=== PATIENT | female | born 1945 | race Caucasian/White ===

== ENCOUNTER 2016-09-05 06:18 | Observation (INO) | payer OTHER ==
[2016-08-23 08:26] VITALS: BMI 36.0
--- NOTE | 2016-08-23 09:01 | PAT Medication Instructions ---
Service Date Aug 23, 2016. Current Home Medication List Aspirin (Aspirin Ec), 81 MG PO QPM Budesonide (Budesonide), 3 TAB PO QAM Cholecalciferol (Vitamin D3), Unknown Dose PO QAM Dicyclomine Hcl (Dicyclomine Hcl), 1 TAB PO BID PRN for PRN Fexofenadine Hcl (Mariah Allergy), 1 TAB PO QAM Levothyroxine Sodium (Levothyroxine Sodium), 1 TAB PO QAM Lisinopril (Zestril), 10 MG PO QAM Meclizine Hcl (Meclizine Hcl), 1 TAB PO TID PRN for VERTIGO Metoprolol Succinate (Toprol Xl), 25 MG PO QPM Multivitamin (Multivitamin), 1 TAB PO QAM Omeprazole (Prilosec), 20 MG PO BID Rosuvastatin Calcium (Crestor), 10 MG PO QPM Sertraline (Zoloft), 100 MG PO BID Triamterene/Hctz (Dyazide 37.5MG/25MG), 1 TAB PO QAM [Foximax ], Unknown Dose PO QWEEK Medication Instructions For Your Scheduled Surgery - Check with surgeon for instructions: Aspirin (Aspirin Ec), 81 MG PO QPM - Continue as directed: [Foximax ], Unknown Dose PO QWEEK - Hold the following medications the morning of surgery: Cholecalciferol (Vitamin D3), Unknown Dose PO QAM Lisinopril (Zestril), 10 MG PO QAM Triamterene/Hctz (Dyazide 37.5MG/25MG), 1 TAB PO QAM Dicyclomine Hcl (Dicyclomine Hcl), 1 TAB PO BID PRN Fexofenadine Hcl (Mariah Allergy), 1 TAB PO QAM Multivitamin (Multivitamin), 1 TAB PO QAM - Take the following medications the morning of surgery with a sip of water OTHERWISE NOTHING TO EAT OR DRINK AFTER MIDNIGHT: Budesonide (Budesonide), 3 TAB PO QAM Levothyroxine Sodium (Levothyroxine Sodium), 1 TAB PO QAM Meclizine Hcl (Meclizine Hcl), 1 TAB PO TID PRN for VERTIGO Omeprazole (Prilosec), 20 MG PO BID Sertraline (Zoloft), 100 MG PO BID - Take the following medications as scheduled the night before surgery: Dicyclomine Hcl (Dicyclomine Hcl), 1 TAB PO BID PRN Meclizine Hcl (Meclizine Hcl), 1 TAB PO TID PRN for VERTIGO Rosuvastatin Calcium (Crestor), 10 MG PO QPM Metoprolol Succinate (Toprol Xl), 25 MG PO QPM Omeprazole (Prilosec), 20 MG PO BID Sertraline (Zoloft), 100 MG PO BID If you have any questions please call us at [phone] (Anne Mclaughlin PA-C ) or [phone] or [phone]
[2016-08-23 09:44] LABS: BASO % 0.2 %; BASO ABS # 0.02 K/uL (0-0.2); COMPLETE YES; EOS % 0.8 %; HEMATOCRIT 38.8 % (37-47); IG% 0.5 %; LYMPH ABS # 1.07 K/uL (1.2-3.4); MEAN CELL VOLUME 92.2 fL (80-100); MEAN CORPUSCULAR HEMOGLOBIN 30.9 pg (25-34); MEAN CORPUSCULAR HGB CONC 33.5 g/dl (32-36); MEAN PLATELET VOLUME 9.6 fL (7.4-10.4); MONO % 6.9 %; NEUT % 78.6 %; PLATELET COUNT 231 K/uL (130-400); RED BLOOD COUNT 4.21 M/uL (4.2-5.4); WHITE BLOOD COUNT 8.24 K/uL (4.8-10.8)
[2016-08-23 09:51] LABS: URINE APPEARANCE CLEAR (CLEAR); URINE BILIRUBIN NEG (NEG); URINE COLOR YELLOW; URINE NITRITE NEG (NEG); URINE PH 6.5 (4.5-7.5); URINE SPECIFIC GRAVITY 1.015 (1.000-1.030); UROBILINOGEN NEG (NEG)
[2016-08-23 09:54] LABS: MANUAL MICROSCOPIC REQUIRED? NO; REVIEW REQ? NO
[2016-08-23 09:54] LABS: PARTIAL THROMBOPLASTIN RATIO 0.9; PROTHROMBIN TIME (PATIENT) 10.2 SECONDS (9.0-12.0)
--- NOTE | 2016-08-23 09:55 | DIAGNOSTIC IMAGING REPORT ---
CHEST PREADMISSION(PA/LAT) CLINICAL HISTORY: Preoperative evaluation COMPARISON STUDY: No previous studies for comparison. FINDINGS: Lung volumes are normal. There is no pneumothorax or pleural effusion. Linear left lung opacities are suggestive of atelectasis. There is no consolidation. Pulmonary vascularity is normal. Degenerative changes of both shoulders are noted as well as suspected distal right clavicular resection or resorption. IMPRESSION: No acute cardiopulmonary findings. Electronically signed by: Alexy Tran M.D. 08/23/2016 9:54 AM
[2016-08-23 10:42] LABS: BUN/CREATININE RATIO 22.7 (10-20); CALCIUM 9.2 mg/dl (8.5-10.1); CREATININE 0.95 mg/dl (0.60-1.20); POTASSIUM 4.3 mmol/L (3.5-5.1)
--- NOTE | 2016-09-04 12:27 | HISTORY & PHYSICAL EXAMINATION ---
DATE OF ADMISSION: 09/05/2016 For surgery at [facility] tomorrow, the 05 of September. She is being preop'd for lumbar stenosis surgery L3-L4 and L4-L5, lumbar spine. She has a combination of classic spinal stenosis with some facet joint hypertrophy, fatty deposits giving a significant cauda equina compression. MEDICATIONS: Include meclizine, multivitamin, Prevacid, sertraline, levothyroxine, ranitidine, Toprol, Norvasc, lisinopril, Crestor, metoprolol. PAST SURGICAL HISTORY: Hysterectomy, appendectomy, rotator cuff surgery left and right. She also had brain aneurysm surgery in 2010. ALLERGIES: INCLUDE AMOXICILLIN AND AUGMENTIN. SOCIAL HISTORY: Nonsmoker, non-ETOH user. PAST MEDICAL HISTORY: Positive for acid reflux. No carcinoma. No kidney, renal or liver pathology. Positive for hypertension. No COPD, no diabetes mellitus. REVIEW OF SYSTEMS: Denies blurred vision, double vision, vertigo, loss of balance. Denies any current chest pain, palpitations, shortness of breath. Denies nausea, vomiting, urgency, frequency, dysuria. Admits to back, lower extremity difficulty, paresthesias, walking intolerance and significant lower extremity pain, roughly in the 4 and 5 nerve root distribution. OBJECTIVE: GENERAL: She is alert, oriented young lady, conversant. No signs of depression. VITAL SIGNS: Blood pressure 130/80, pulse of 80, respiratory rate 16, temperature 97.4. HEART AND LUNGS: Normal. Normal S1, S2; no ectopy. Lungs clear to auscultation. No rales, rhonchi or wheezing. ABDOMEN: Soft, nontender, bowel sounds present. EXTREMITIES: Demonstrate some weakness with dorsiflexion and plantarflexion, some muscle atrophy and pain with straight leg raising. She also has pain with flexion, extension and percussion to the spine. Images demonstrate stenosis L3-L4, L4-L5, and L5-S1. DISPOSITION: Includes surgery which will be a laminectomy L3-L4, L4-L5, L5-S1 lumbar spine.
[2016-09-05] VITALS (9 sets, daily range): BP systolic 105–142; BP diastolic 47–76; PULSE 56–75; TEMP 36.6–37.5; O2SAT 91–95; Ht 157.5 cm; Wt 91.0 kg
[~2016-09-05] VITALS: Ht 157.5 cm; Wt 91.0 kg
[~2016-09-05 06:18] MED LIST: ALEN70TA4 PO; ASPI81TA28 PO; BUDE0.09 PO; CHOL1000 PO; CLINDAMYCIN 600 MG/54 ML D5W IV SCH; CRS/10 PO; DICY20TA10 PO; FEXO1TAB49 PO; LACTATED RINGER'S 1000ML 1,000 ML IV SCH; LEVO75TA5 PO; LISI-461 PO; MECL1TAB42 PO; METO25TA3 PO; MULT-506 PO; PRLSR20 PO; SERT-234 PO; SODIUM CHLORIDE 0.9% 1000ML 1,000 ML IV SCH; TRIA37.5 PO
[2016-09-05] MEDS ORDERED: FENTANYL CITRATE INJ 50 MCG/1 ML 2 ML VIAL ONE (07:40)
[2016-09-05] MEDS ORDERED: MIDAZOLAM HCL 1 MG/ML 2ML VIAL ONE (07:40)
--- NOTE | 2016-09-05 07:49 | History & Physical Bridge Note ---
H&P Re-Evaluation Bridge Note: I have examined the patient, reviewed the History & Physical and in the interval since the performance of the History & Physical I have noted the following changes of clinical significance: No changes noted
[2016-09-05] MEDS ORDERED: GLYCOPYRROLATE INJ 0.2 MG/ML VIAL ONE ×2 (08:47→08:54)
[2016-09-05] MEDS ORDERED: LIDOCAINE HCL 2% 2 ML VIAL (20MG/ML) ONE (08:47)
[2016-09-05] MEDS ORDERED: NEOSTIGMINE METHYLSULFATE 5 MG/5 ML SYR ONE (08:47)
[2016-09-05] MEDS ORDERED: LARYING-O-JET KIT (LTA) EXT ONE ×2 (08:47)
[2016-09-05] MEDS ORDERED: PROPOFOL IV EMULSION 10 MG/ML 20 ML VIAL IV ONE (08:47)
[2016-09-05] MEDS ORDERED: CISATRACURIUM BESYLATE IV SOLN 2 MG/ML 10 ML VIAL ONE (08:47)
[2016-09-05] MEDS ORDERED: DEXAMETHASONE SOD INJ 4 MG/ML VIAL ONE (08:47)
[2016-09-05] MEDS ORDERED: ONDANSETRON INJ 2 MG/ML 2 ML VIAL ONE (08:47)
[2016-09-05] MEDS ORDERED: HYDROmorphone INJ 2 MG/ML SYR/VIAL ONE (08:48)
[2016-09-05] MEDS ORDERED: GELATIN SPONGE SZ 100 TOP ONE (09:49)
[2016-09-05] MEDS ORDERED: THROMBIN FOR SOLN 20000 UNIT KIT TOP ONE (09:49)
[2016-09-05] MEDS ORDERED: VANCOMYCIN HCL 1000MG/20ML VIAL TOP ONE (09:49)
[2016-09-05] MEDS ORDERED: BUPIVACAINE/EPINEPHRINE 0.5% MPF 1:200,000 30 ML VIAL INJ ONE (09:49)
[2016-09-05] MEDS ORDERED: BACITRACIN 50000 UNIT VIAL IR ONE (09:49)
--- NOTE | 2016-09-05 10:21 | DIAGNOSTIC IMAGING REPORT ---
LUMBAR SPINE, INTRAOPERATIVE FLUOROSCOPY HISTORY: L3-S1 laminectomy. FLUOROSCOPY TIME: 1.5 seconds. FINDINGS: Intraoperative fluoroscopy was provided for the lumbar spine. A single fluoroscopic spot image of the lumbar spine was submitted. There are surgical instruments posterior to the L3 vertebral body and the S1 level. IMPRESSION: Fluoroscopy provided for a L3-S1 laminectomy. Electronically signed by: Juan F Mcnulty M.D. 09/05/2016 10:19 AM
--- NOTE | 2016-09-05 10:29 | [facility] Post Operative Brief Note ---
Immediate Operative Summary Operative Date Sep 05, 2016. Pre-Operative Diagnosis Spinal stenosis L3-L4, L4-L5, and L5-S1 Post-Operative Diagnosis Spinal stenosis L3-L4, L4-L5, and L5-S1 Procedure(s) Performed L3-S1 Laminectomy Surgeon Dr. Josué Camarillo Drop Crew Laborer Surgeon(s) Filippo Honeycutt Estimated Blood Loss 200ml Findings stenosis and epidural lipomatosis Specimens No Specimen Complication(s) None Disposition Recovery Room / PACU
[2016-09-05] MEDS ORDERED: FLUMAZENIL 0.1 MG/1 ML 10 ML VIAL IV PRN (10:30)
[2016-09-05] MEDS ORDERED: LABETALOL HCL IV 5 MG/ML 20ML IV PRN (10:30)
[2016-09-05] MEDS ORDERED: ACETAMINOPHEN 325 MG TAB PO PRN (10:30)
[2016-09-05] MEDS ORDERED: PROMETHAZINE HCL INJ 12.5 MG in SODIUM CHLORIDE 0.9% 50ML 50 ML IV PRN ×4 (10:30)
[2016-09-05] MEDS ORDERED: ONDANSETRON INJ 2 MG/ML 2 ML VIAL IV PRN ×2 (10:30)
[2016-09-05] MEDS ORDERED: HYDROmorphone INJ 1 MG/ML SYR IV PRN ×2 (10:30)
[2016-09-05] MEDS ORDERED: MAGNESIUM HYDROXIDE SUSP 30 ML UDC PO PRN (10:30)
[2016-09-05] MEDS ORDERED: LORAZEPAM 1 MG TAB PO PRN (10:30)
[2016-09-05] MEDS ORDERED: METOCLOPRAMIDE HCL INJ 5 MG/ML 2 ML VIAL IV PRN (10:30)
[2016-09-05] MEDS ORDERED: OXYCODONE/ACETAMINOPHEN 5-325 TAB PO PRN (10:30)
[2016-09-05] MEDS ORDERED: DICYCLOMINE HCL 20 MG TAB PO PRN (10:30)
[2016-09-05] MEDS ORDERED: ATROPINE SULFATE 0.1 MG/ML 5ML SYR IV PRN (10:30)
[2016-09-05] MEDS ORDERED: LORAZEPAM INJ 1 MG in SYRINGE 0 ML IV PRN (10:30)
[2016-09-05] MEDS ORDERED: EpHEDrine SULFATE INJ 50 MG/ML AMP IV PRN (10:30)
[2016-09-05] MEDS ORDERED: NALOXONE HCL 0.4 MG/1 ML VIAL/CARP IV PRN (10:30)
[2016-09-05] MEDS ORDERED: MECLIZINE HCL 25 MG TAB PO PRN (10:30)
[2016-09-05] MEDS ORDERED: HYDROmorphone INJ 2 MG/ML SYR/VIAL IV PRN (10:30)
--- NOTE | 2016-09-05 10:54 | OPERATIVE REPORT ---
DATE OF OPERATION: 09/05/2016 PREOPERATIVE DIAGNOSIS: Stenosis lumbar spine and epidural lipomatosis. POSTOPERATIVE DIAGNOSIS: Same. PROCEDURE: Include a decompression laminectomy L3 to sacrum, essentially a 4 level laminectomy at 3, 4, 5 and S1. SURGEON: Dr. Camarillo. UNDERGRADUATE ADVISOR: Filippo Honeycutt PA-C. COMPLICATIONS: No complications. BLOOD LOSS: Controlled at 200 mL. Sponge and needle count correct. IMPLANTS: No implants used. The patient was taken to the operating room, a general intubated anesthetic provided to the patient. Perez catheter provided, placed prone, scrubbed, prepped and draped sterile. We made a skin incision from the top of 3 down to the base of S1 level of the spine. Made a careful dissection down to the lamina, out to the facet joints, no further. We did a formal decompression of the neural elements, lamina 3, lamina 4, 5, and sacrum. We decompressed each and every nerve root. The patient did have a diagnosis of lipomatosis, so there was a significant amount of epidural fat on the dorsal and ventral aspect of the canal, and laterally in both directions. This was removed to the best of our ability. We irrigated and closed in layered fashion over Hemovac drain. Sterile dressing applied. The patient returned to PACU in improved stable condition. Again, no complications. I attest to the content of the Intraoperative Record and any orders documented therein. Any exceptio ns are noted below.
--- NOTE | 2016-09-05 11:31 | Anesthesiology Progress Note ---
Anesthesia Post Op Note Date & Time Sep 05, 2016 at 11:31 Vital Signs Pain Intensity: 2 Vital Signs Past 12 Hours Date Time Temp Pulse Resp B/P Pulse Ox O2 Delivery O2 Flow Rate FiO2 09/05/16 11:16 68 13 09/05/16 11:16 68 13 95 09/05/16 11:15 36.7 65 14 124/71 97 Nasal Cannula 4 09/05/16 11:14 124/71 09/05/16 11:11 68 19 96 09/05/16 11:11 68 19 09/05/16 11:09 116/69 09/05/16 11:06 68 14 97 09/05/16 11:06 67 14 09/05/16 11:04 116/94 09/05/16 11:01 62 9 09/05/16 11:01 62 9 96 09/05/16 10:59 128/71 09/05/16 10:56 63 21 09/05/16 10:56 63 21 97 09/05/16 10:54 120/84 09/05/16 10:51 15 09/05/16 10:51 69 15 09/05/16 10:49 120/73 09/05/16 10:46 67 17 92 09/05/16 10:46 64 17 09/05/16 10:45 137/67 09/05/16 10:44 62 14 09/05/16 10:44 62 14 91 09/05/16 10:39 62 13 143/61 90 09/05/16 10:39 62 13 09/05/16 10:34 61 14 09/05/16 10:34 62 14 117/73 95 09/05/16 10:29 67 14 134/72 94 09/05/16 10:29 66 14 09/05/16 10:24 70 15 09/05/16 10:24 71 15 145/52 95 09/05/16 10:19 72 22 142/94 97 09/05/16 10:19 36.4 73 14 130/94 96 Mask 10 09/05/16 10:19 72 22 09/05/16 07:05 36.6 56 18 142/47 93 Room Air Notes Mental Status: alert / awake / arousable, participated in evaluation Pt Amnestic to Procedure: Yes Nausea / Vomiting: adequately controlled Pain: adequately controlled Airway Patency, RR, SpO2: stable & adequate BP & HR: stable & adequate Hydration State: stable & adequate Anesthetic Complications: no major complications apparent
[2016-09-05] MEDS: SODIUM CHLORIDE 0.9% 1000ML 1,000 ML IV SCH ×2 (11:50→22:27)
[2016-09-05] MEDS ORDERED: HydrALAZINE HCL 20 MG/ML VIAL IV. PRN (13:00)
--- NOTE | 2016-09-05 13:16 | Medical Consult ---
Consultation Date of Consultation: Sep 05, 2016. Attending Physician: Josué Camarillo DO Reason for Consultation: Medical management History of Present Illness This is a 70 y/o female with a history of HTN, HLD, hypothyroidism, anxiety/ depression, osteoporosis, colitis, and GERD who presents s/p L3-S1 laminectomy with Dr. Camarillo on 09/05/16 for medical management. The patient is drowsy but feeling well post operatively. She has not yet eaten. She denies any pain, numbness or tingling. She has not yet passed gas or had a bowel movement. Perez catheter is in place. The patient denies fevers, chills, sweats, chest pain, palpitations, claudication, cough, wheezing, shortness of breath, nausea, vomiting, abdominal pain, dysuria, hematuria, urinary retention, paralysis, weakness, numbness and tingling. Family History Breast cancer Diabetes mellitus Hypertension Kidney disease (ESRD) Lung disease [place] Melanoma Stroke Social History Smoking Status: Former Smoker (quit 20 years ago) Smokeless Tobacco Use: No Alcohol Use: none Drug Use: none Marital Status: Housing Status: lives with significant other Occupation Status: retired Allergies Coded Allergies: Amoxicillin (Verified Allergy, Intermediate, HIVES, 09/05/16) Clavulanic Acid (Verified Allergy, Intermediate, HIVES, 09/05/16) Current Inpatient Medications Current Inpatient Medications Medications (Trade) Dose Ordered Sig/Siddhartha Route Start Time Stop Time Status Last Admin Dose Admin Clindamycin Phosphate 54 ml @ 100 mls/hr PREOP IV 09/05/16 06:00 09/05/16 18:00 09/05/16 08:15 100 MLS/HR Lactated Ringer's (Lr 1000ml) 1,000 ml @ 15 mls/hr Q24H IV 09/05/16 06:00 09/05/16 18:00 09/05/16 07:20 15 MLS/HR Acetaminophen (Tylenol Tab) 650 mg Q6H PRN PO 09/05/16 10:30 10/05/16 10:29 Hydromorphone HCl (Dilaudid Inj) 1 mg Q3H PRN IV 09/05/16 10:30 09/19/16 10:29 Hydromorphone HCl (Dilaudid Inj) 1.5 mg Q3H PRN IV 09/05/16 10:30 09/19/16 10:29 Ketorolac Tromethamine 15 mg 15 mg Q6H IV. 09/05/16 14:00 09/06/16 14:01 Promethazine HCl/ Sodium Chloride (Phenergan Inj/ Nss 50ml) 50.5 ml @ 202 mls/hr Q6H PRN IV 09/05/16 10:30 10/05/16 10:29 Ondansetron HCl (Zofran Inj) 4 mg Q6H PRN IV 09/05/16 10:30 10/05/16 10:29 Metoclopramide HCl (Reglan Inj) 10 mg Q6H PRN IV 09/05/16 10:30 10/05/16 10:29 Lorazepam 1 mg 1 mg Q6H PRN PO 09/05/16 10:30 10/05/16 10:29 Lorazepam/Syringe (Ativan Inj/ Syringe) 0.5 ml @ 1 mls/min Q6H PRN IV 09/05/16 10:30 10/05/16 10:29 Polyethylene (Miralax Powder Packet) 17 gm DAILY PO 09/06/16 09:00 10/06/16 08:59 Bisacodyl (Dulcolax Tab) 5 mg DAILY PRN PO 09/06/16 06:00 10/06/16 05:59 Bisacodyl (Dulcolax Supp) 10 mg DAILY PRN [place] 09/06/16 06:00 10/06/16 05:59 Magnesium Hydroxide (Milk Of Magnesia Susp) 30 ml DAILY PRN PO 09/05/16 10:30 10/05/16 10:29 Diphenhydramine HCl (Benadryl Cap) 25 mg Q6H PRN PO 09/05/16 10:30 10/05/16 10:29 Oxycodone/ Acetaminophen (Percocet 5-325MG Tab) 1 tab Q4H PRN PO 09/05/16 10:30 09/19/16 10:29 Oxycodone/ Acetaminophen 2 tab 2 tab Q4H PRN PO 09/05/16 10:30 09/19/16 10:29 Clindamycin Phosphate 600 mg/ Dextrose 54 ml @ 100 mls/hr Q8@0000,0800,1600 IV 09/05/16 16:00 09/06/16 00:33 Sodium Chloride (Nss 1000ml) 1,000 ml @ 80 mls/hr [id number] IV 09/05/16 10:17 10/05/16 10:16 09/05/16 11:50 80 MLS/HR Aspirin (Ecotrin Tab) 81 mg QPM PO 09/05/16 21:00 10/05/16 20:59 Budesonide (Entocort EC Cap) 9 mg QAM PO 09/06/16 09:00 10/06/16 08:59 Dicyclomine HCl (Bentyl Tab) 20 mg BID PRN PO 09/05/16 10:30 10/05/16 10:29 Fexofenadine HCl (Mariah Tab) 180 mg QAM PO 09/06/16 09:00 10/06/16 08:59 Levothyroxine Sodium (Synthroid Tab) 75 mcg DAILYBB PO 09/06/16 06:00 10/06/16 05:59 Lisinopril (Zestril Tab) 10 mg QAM PO 09/06/16 09:00 10/06/16 08:59 Future Hold Meclizine HCl (Antivert Tab) 25 mg TID PRN PO 09/05/16 10:30 10/05/16 10:29 Metoprolol Succinate (Toprol Xl Tab) 25 mg QPM PO 09/05/16 21:00 10/05/16 20:59 Multivitamins (Multivitamin Tab) 1 tab QAM PO 09/06/16 09:00 10/06/16 08:59 Rosuvastatin Calcium (Crestor Tab) 10 mg QPM PO 09/05/16 21:00 10/05/16 20:59 Sertraline HCl (Zoloft Tab) 100 mg BID PO 09/05/16 21:00 10/05/16 20:59 Pantoprazole Sodium (Protonix Tab) 40 mg BID PO 09/05/16 21:00 10/05/16 20:59 Hydromorphone HCl (Dilaudid Inj) 0.25 mg Q5M PRN IV 09/05/16 10:30 09/05/16 15:30 Naloxone HCl (Narcan Inj) 0.2 mg Q2M PRN IV 09/05/16 10:30 09/05/16 15:30 Flumazenil (Romazicon Inj) 0.2 mg Q2M PRN IV 09/05/16 10:30 09/05/16 15:30 Ondansetron HCl 4 mg 4 mg ONE PRN IV 09/05/16 10:30 09/05/16 15:30 Promethazine HCl/ Sodium Chloride (Phenergan Inj/ Nss 50ml) 50.5 ml @ 202 mls/hr ONE PRN IV 09/05/16 10:30 09/05/16 15:30 Labetalol HCl (Normodyne IV) 5 mg Q5M PRN IV 09/05/16 10:30 09/05/16 15:30 Ephedrine Sulfate (EpHEDrine SULFATE INJ) 5 mg Q5M PRN IV 09/05/16 10:30 09/05/16 15:30 Atropine Sulfate (Atropine Sulfate 0.1MG/Ml Inj) 0.5 mg Q1M PRN IV 09/05/16 10:30 09/05/16 15:30 Hydralazine HCl (HydrALAZINE INJ) 10 mg Q6H PRN IV. 09/05/16 13:00 10/05/16 12:59 UNV Review of Systems See HPI for pertinent positives and negatives. All other systems reviewed and negative. Physical Exam Date Time Temp Pulse Resp B/P Pulse Ox O2 Delivery O2 Flow Rate FiO2 09/05/16 12:50 68 17 109/68 93 Nasal Cannula 4.0 09/05/16 11:50 36.9 66 14 124/76 93 Nasal Cannula 4.0 09/05/16 11:50 93 Nasal Cannula 4.0 09/05/16 11:50 93 Nasal Cannula 4.0 09/05/16 11:44 36.7 09/05/16 11:42 61 17 09/05/16 11:42 65 17 95 09/05/16 11:39 117/51 09/05/16 11:37 63 13 09/05/16 11:37 61 13 99 09/05/16 11:34 121/71 09/05/16 11:32 63 14 99 09/05/16 11:32 62 14 09/05/16 11:29 120/67 09/05/16 11:27 72 21 98 09/05/16 11:27 72 21 09/05/16 11:24 129/63 09/05/16 11:22 67 18 09/05/16 11:22 69 18 98 09/05/16 11:20 136/79 09/05/16 11:17 75 15 99 09/05/16 11:17 74 15 09/05/16 11:16 68 13 09/05/16 11:16 68 13 95 09/05/16 11:15 36.7 65 14 124/71 97 Nasal Cannula 4 09/05/16 11:14 124/71 09/05/16 11:11 68 19 96 09/05/16 11:11 68 19 09/05/16 11:09 116/69 09/05/16 11:06 68 14 97 09/05/16 11:06 67 14 09/05/16 11:04 116/94 09/05/16 11:01 62 9 09/05/16 11:01 62 9 96 09/05/16 10:59 128/71 09/05/16 10:56 63 21 09/05/16 10:56 63 21 97 09/05/16 10:54 120/84 09/05/16 10:51 15 09/05/16 10:51 69 15 09/05/16 10:49 120/73 09/05/16 10:46 67 17 92 09/05/16 10:46 64 17 09/05/16 10:45 137/67 09/05/16 10:44 62 14 09/05/16 10:44 62 14 91 09/05/16 10:39 62 13 143/61 90 09/05/16 10:39 62 13 09/05/16 10:34 61 14 09/05/16 10:34 62 14 117/73 95 09/05/16 10:29 67 14 134/72 94 09/05/16 10:29 66 14 09/05/16 10:24 70 15 09/05/16 10:24 71 15 145/52 95 09/05/16 10:19 72 22 142/94 97 09/05/16 10:19 36.4 73 14 130/94 96 Mask 10 09/05/16 10:19 72 22 09/05/16 07:05 36.6 56 18 142/47 93 Room Air General Appearance: WD/WN, no apparent distress, + obese Head: normocephalic, atraumatic Eyes: normal inspection, PERRL, EOMI ENT: normal ENT inspection, hearing grossly normal, pharynx normal, + pertinent finding (dry oral mucosa) Neck: supple, no JVD, trachea midline Respiratory/Chest: lungs clear, normal breath sounds, no respiratory distress Cardiovascular: regular rate, rhythm, no gallop, + systolic murmur Abdomen/GI: normal bowel sounds, non tender, soft Extremities/Musculoskelatal: normal inspection, no calf tenderness, no pedal edema Neurologic/Psych: alert (alert with intermittent drowsiness), normal mood/ affect, oriented x 3 Skin: normal color, warm/dry, no rash Laboratory Results Last 24 Hours Test 09/05/16 12:24 09/05/16 12:59 Assessment & Plan 70 y/o female with a history of HTN, HLD, hypothyroidism, anxiety/depression, osteoporosis, colitis, and GERD who presents s/p L3-S1 laminectomy with Dr. Camarillo on 09/05/16 for medical management. -Pain management, DVT prophylaxis, and PT/OT as per primary team HTN--stable -Hold lisinopril until assess renal function -Hold Dyazide while on IVF -Continue Toprol XL 25 mg PO qd -Cover with hydralazine 10 mg IV q6h prn SBP >180 HLD -Continue Crestor 10 mg PO qd Hypothyroidism -Continue Synthroid 75 mcg PO qd Anxiety/depression -Continue sertraline 100 mg PO BID Osteoporosis--Pt. takes Fosamax weekly on Sundays, will not need while inpatient Colitis -Continue budesonide 3 mg 3 tabs PO qd and Bentyl prn GERD -Continue Prilosec 20 mg PO BID Code Status -Level I, FULL RESUSCITATION STATUS Thank you for this consultation. We will continue to follow.
[2016-09-05 13:45] LABS: MEAN CELL VOLUME 91.9 fL (80-100); MEAN CORPUSCULAR HEMOGLOBIN 30.4 pg (25-34); MEAN CORPUSCULAR HGB CONC 33.1 g/dl (32-36); MEAN PLATELET VOLUME 9.4 fL (7.4-10.4); PLATELET COUNT 258 K/uL (130-400); RED BLOOD COUNT 3.81 M/uL (4.2-5.4); WHITE BLOOD COUNT 12.66 K/uL (4.8-10.8)
[2016-09-05] MEDS: KETOROLAC TROMETHAMINE 15 MG/ML VIAL IV. SCH ×2 (13:51→19:56)
[2016-09-05 14:10] LABS: BUN/CREATININE RATIO 21.4 (10-20); CALCIUM 8.3 mg/dl (8.5-10.1); CREATININE 0.92 mg/dl (0.60-1.20); POTASSIUM 4.3 mmol/L (3.5-5.1)
[2016-09-05] MEDS ORDERED: IV FLUIDS COMPLETED PRN (14:30)
[2016-09-05] MEDS: CLINDAMYCIN IV 600 MG in DEXTROSE 5% ADD-VANTAGE 50ML 50 ML IV SCH ×2 (17:04→23:49)
[2016-09-05] MEDS: SERTRALINE HCL 100 MG TAB PO SCH (20:56)
[2016-09-05] MEDS: ROSUVASTATIN CALCIUM 10 MG TAB PO SCH (20:56)
[2016-09-05] MEDS: PANTOprazole SOD 40 MG TAB PO SCH (20:57)
[2016-09-05] MEDS: ASPIRIN 81 MG ECTAB PO SCH (21:32)
[2016-09-05] MEDS: METOPROLOL SUCC 25MG EXT REL TAB PO SCH (21:32)
[2016-09-05] MEDS: OXYCODONE/ACETAMINOPHEN 5-325 TAB PO PRN (22:28)
[2016-09-06] VITALS (9 sets, daily range): BP systolic 102–158; BP diastolic 59–80; PULSE 56–72; TEMP 36.8–37.4; O2SAT 90–94
[2016-09-06] MEDS ORDERED: NURSING VERBAL MED ORDER ONE (00:45)
[2016-09-06] MEDS: KETOROLAC TROMETHAMINE 15 MG/ML VIAL IV. SCH ×3 (01:52→13:44)
[2016-09-06] MEDS ORDERED: COUGH DROP (SUGAR FREE) LOZ 24 LOZ/1 BOX ONE (01:55)
[2016-09-06] MEDS: LEVOTHYROXINE 75 MCG TAB PO SCH (05:58)
[2016-09-06] MEDS ORDERED: BISACODYL 5 MG TABEC PO PRN (06:00)
[2016-09-06] MEDS ORDERED: BISACODYL 10 MG SUPP PR PRN (06:00)
[2016-09-06 06:42] LABS: HEMATOCRIT 29.6 % (37-47); MEAN CELL VOLUME 93.1 fL (80-100); MEAN CORPUSCULAR HEMOGLOBIN 30.5 pg (25-34); MEAN CORPUSCULAR HGB CONC 32.8 g/dl (32-36); MEAN PLATELET VOLUME 9.8 fL (7.4-10.4); PLATELET COUNT 202 K/uL (130-400); RED BLOOD COUNT 3.18 M/uL (4.2-5.4)
[2016-09-06 07:24] LABS: BUN/CREATININE RATIO 22.3 (10-20); CALCIUM 8.1 mg/dl (8.5-10.1); CREATININE 0.84 mg/dl (0.60-1.20); MAGNESIUM 1.9 mg/dl (1.8-2.4); POTASSIUM 3.9 mmol/L (3.5-5.1)
--- NOTE | 2016-09-06 08:59 | Anesthesiology Progress Note ---
Anesthesia Post Op Note Date & Time Sep 06, 2016 at 08:58 Vital Signs Pain Intensity: 3.0 Vital Signs Past 12 Hours Date Time Temp Pulse Resp B/P Pulse Ox O2 Delivery O2 Flow Rate FiO2 09/06/16 07:59 94 Room Air 09/06/16 07:57 37.0 60 14 158/80 94 Room Air 09/06/16 07:50 Room Air 09/06/16 03:57 37.4 72 16 109/65 90 Room Air 09/05/16 23:50 Room Air 09/05/16 23:31 37.0 72 18 134/71 93 Room Air 09/05/16 20:59 75 109/72 Notes Mental Status: alert / awake / arousable, participated in evaluation Pt Amnestic to Procedure: Yes Nausea / Vomiting: adequately controlled Pain: adequately controlled Airway Patency, RR, SpO2: stable & adequate BP & HR: stable & adequate Hydration State: stable & adequate Anesthetic Complications: no major complications apparent
[2016-09-06] MEDS ORDERED: LISINOPRIL 10 MG TAB PO SCH (09:00)
[2016-09-06] MEDS: POLYETHYLENE (MIRALAX) 17 GM PACK PO SCH (09:00)
[2016-09-06] MEDS: MULTIVITAMIN TAB PO SCH (09:17)
[2016-09-06] MEDS: BUDESONIDE EC 3 MG CAP PO SCH (09:17)
[2016-09-06] MEDS: FEXOFENADINE HCL 180 MG TAB PO SCH (09:17)
[2016-09-06] MEDS: SERTRALINE HCL 100 MG TAB PO SCH ×2 (09:18→21:08)
[2016-09-06] MEDS: PANTOprazole SOD 40 MG TAB PO SCH ×2 (09:18→21:08)
--- NOTE | 2016-09-06 11:11 | Hospitalist Progress Note ---
Hospitalist Progress Note Date of Service Sep 06, 2016. Subjective Pt evaluation today including: conversation w/ patient, physical exam, chart review, lab review, review of inpatient medication list PO Intake: Tolerating PO diet Voiding: romero catheter in place (will be removed after breakfast) Patient reports feeling well, and she is fully alert. She states she has some mild discomfort at the site of her drain. The patient did develop a sore throat last night, but that resolved completely after taking 1 throat lozenge. She otherwise has no complaints. She is tolerating a PO diet well. She is passing gas but denies any bowel movements yet. Her Romero is still in place at the time of my examination, but she states that the nurse will remove it after breakfast. The patient denies fevers, chills, sweats, chest pain, palpitations , claudication, cough, wheezing, shortness of breath, nausea, vomiting, abdominal pain, dysuria, hematuria, urinary retention, paralysis, weakness, numbness and tingling. Additional Comments: See HPI for pertinent positives and negatives. All other systems reviewed and negative. Objective Vital Signs Date Time Temp Pulse Resp B/P Pulse Ox O2 Delivery O2 Flow Rate FiO2 09/06/16 09:31 61 102/59 09/06/16 07:59 94 Room Air 09/06/16 07:57 37.0 60 14 158/80 94 Room Air 09/06/16 07:50 Room Air 09/06/16 03:57 37.4 72 16 109/65 90 Room Air 09/05/16 23:50 Room Air 09/05/16 23:31 37.0 72 18 134/71 93 Room Air 09/05/16 20:59 75 109/72 09/05/16 19:11 37.5 69 18 125/64 91 Room Air 09/05/16 17:27 93 Room Air 09/05/16 15:15 Nasal Cannula 4.0 09/05/16 14:50 37.2 64 18 115/68 95 Nasal Cannula 4.0 09/05/16 13:55 36.9 69 105/61 93 09/05/16 12:50 68 17 109/68 93 Nasal Cannula 4.0 09/05/16 11:50 36.9 66 14 124/76 93 Nasal Cannula 4.0 09/05/16 11:50 93 Nasal Cannula 4.0 09/05/16 11:50 93 Nasal Cannula 4.0 09/05/16 11:44 36.7 09/05/16 11:42 61 17 09/05/16 11:42 65 17 95 09/05/16 11:39 117/51 09/05/16 11:37 63 13 09/05/16 11:37 61 13 99 09/05/16 11:34 121/71 09/05/16 11:32 63 14 99 09/05/16 11:32 62 14 09/05/16 11:29 120/67 09/05/16 11:27 72 21 98 09/05/16 11:27 72 21 09/05/16 11:24 129/63 09/05/16 11:22 67 18 09/05/16 11:22 69 18 98 09/05/16 11:20 136/79 09/05/16 11:17 75 15 99 09/05/16 11:17 74 15 09/05/16 11:16 68 13 09/05/16 11:16 68 13 95 09/05/16 11:15 36.7 65 14 124/71 97 Nasal Cannula 4 09/05/16 11:14 124/71 09/05/16 11:11 68 19 96 09/05/16 11:11 68 19 09/05/16 11:09 116/69 09/05/16 11:06 68 14 97 09/05/16 11:06 67 14 09/05/16 11:04 116/94 Physical Exam General Appearance: WD/WN, no apparent distress, + obese Eyes: normal inspection, PERRL, EOMI ENT: normal ENT inspection, hearing grossly normal, pharynx normal, + pertinent finding (Small area in posterior pharynx appears inflamed and erythematous as if scratched, likely from ET tube) Neck: supple, no JVD, trachea midline Respiratory/Chest: lungs clear, normal breath sounds, no respiratory distress Cardiovascular: regular rate, rhythm, no gallop, + systolic murmur Abdomen: normal bowel sounds, non tender, soft Extremities: non-tender, normal inspection, no pedal edema Neurologic/Psychiatric: alert, normal mood/affect, oriented x 3 Skin: normal color, warm/dry, no rash Laboratory Results Last 24 Hours Test 09/05/16 13:26 09/06/16 06:00 White Blood Count 12.66 K/uL 10.70 K/uL Red Blood Count 3.81 M/uL 3.18 M/uL Hemoglobin 11.6 g/dL 9.7 g/dL Hematocrit 35.0 % 29.6 % Mean Corpuscular Volume 91.9 fL 93.1 fL Mean Corpuscular Hemoglobin 30.4 pg 30.5 pg Mean Corpuscular Hemoglobin Concent 33.1 g/dl 32.8 g/dl RDW Standard Deviation 48.5 fL 49.2 fL RDW Coefficient of Variation 14.4 % 14.4 % Platelet Count 258 K/uL 202 K/uL Mean Platelet Volume 9.4 fL 9.8 fL Sodium Level 141 mmol/L 142 mmol/L Potassium Level 4.3 mmol/L 3.9 mmol/L Chloride Level 104 mmol/L 107 mmol/L Carbon Dioxide Level 25 mmol/L 24 mmol/L Anion Gap 12.0 mmol/L 11.0 mmol/L Blood Urea Nitrogen 20 mg/dl 19 mg/dl Creatinine 0.92 mg/dl 0.84 mg/dl Est Creatinine Clear Calc Drug Dose 61.4 ml/min 67.3 ml/min Estimated GFR () 74.2 82.8 Estimated GFR (Non- 64.0 71.4 BUN/Creatinine Ratio 21.4 22.3 Random Glucose 156 mg/dl 143 mg/dl Calcium Level 8.3 mg/dl 8.1 mg/dl Hepatitis C Antibody Screen NEG Magnesium Level 1.9 mg/dl Assessment and Plan 70 y/o female with a history of HTN, HLD, hypothyroidism, anxiety/depression, osteoporosis, colitis, and GERD who presents s/p L3-S1 laminectomy with Dr. Camarillo on 09/05/16 for medical management. POD #1 -Pain management, DVT prophylaxis, and PT/OT as per primary team Sore throat -Continue menthol lozenges prn pain HTN--stable -Resume lisinopril with hold parameters as renal function stable. Hold if SBP< 100 -Hold Dyazide for now as pt not hypertensive -Continue Toprol XL 25 mg PO qd -Cover with hydralazine 10 mg IV q6h prn SBP >180 HLD -Continue Crestor 10 mg PO qd Hypothyroidism -Continue Synthroid 75 mcg PO qd Anxiety/depression -Continue sertraline 100 mg PO BID Osteoporosis--Pt. takes Fosamax weekly on Sundays, will not need while inpatient Colitis -Continue budesonide 3 mg 3 tabs PO qd and Bentyl prn GERD -Continue Prilosec 20 mg PO BID Code Status -Level I, FULL RESUSCITATION STATUS Thank you for this consultation. We will continue to follow.
[2016-09-06] MEDS: OXYCODONE/ACETAMINOPHEN 5-325 TAB PO PRN (19:02)
[2016-09-06] MEDS: ROSUVASTATIN CALCIUM 10 MG TAB PO SCH (21:07)
[2016-09-06] MEDS: ASPIRIN 81 MG ECTAB PO SCH (21:07)
[2016-09-06] MEDS: METOPROLOL SUCC 25MG EXT REL TAB PO SCH (21:08)
[2016-09-07 00:06] VITALS: BP 152/84; PULSE 74; TEMP 37.4; O2SAT 95
[2016-09-07] MEDS: OXYCODONE/ACETAMINOPHEN 5-325 TAB PO PRN ×3 (00:15→10:01)
[2016-09-07] MEDS: LEVOTHYROXINE 75 MCG TAB PO SCH (04:41)
[2016-09-07 06:13] LABS: HEMATOCRIT 30.1 % (37-47); MEAN CELL VOLUME 92.6 fL (80-100); MEAN CORPUSCULAR HEMOGLOBIN 30.8 pg (25-34); MEAN CORPUSCULAR HGB CONC 33.2 g/dl (32-36); MEAN PLATELET VOLUME 9.7 fL (7.4-10.4); PLATELET COUNT 196 K/uL (130-400); RED BLOOD COUNT 3.25 M/uL (4.2-5.4); WHITE BLOOD COUNT 9.09 K/uL (4.8-10.8)
[2016-09-07 06:48] LABS: BUN/CREATININE RATIO 18.5 (10-20); CREATININE 0.73 mg/dl (0.60-1.20); POTASSIUM 3.9 mmol/L (3.5-5.1)
--- NOTE | 2016-09-07 07:17 | Discharge Instructions ---
Discharge Instructions Admission Reason for Admission: Spinal Stenosis Discharge Discharge Diagnosis / Problem: spinal stenosis Discharge Goals Goal(s): Improve function Activity Recommendations Activity Limitations: as noted below Lifting Limitations: gradually increase as tolerated Exercise/Sports Limitations: until after follow-up appointment May Resume Sexual Activity: after follow-up appointment Shower/Bathe: may shower/bathe in 3 days Driving or Machine Use: be very careful. change dressing every 24 to 48 hours . Instructions / Follow-Up Instructions / Follow-Up wear brace when up ambulating Current Hospital Diet Patient's current hospital diet: Regular Diet Discharge Diet Recommended Diet: Regular Diet Procedures Procedures Performed: L3-S1 Laminectomy Pending Studies Studies pending at discharge: no Medical Emergencies . Who to Call and When: Medical Emergencies: If at any time you feel your situation is an emergency, please call 911 immediately. . Non-Emergent Contact Non-Emergency issues call your: Surgeon Call Non-Emergent contact if: your pain is worsening . "Provider Documentation" section prepared by Josué Camarillo. VTE Core Measure Inpt VTE Proph given/why not?: Treatment not indicated
[2016-09-07 07:28] VITALS: BP 118/60; PULSE 60; TEMP 37.2; O2SAT 88
--- NOTE | 2016-09-07 07:32 | DISCHARGE SUMMARY ---
Improved, stable. Minimal complaints, some soreness, but no terrible pain. Vital signs stable. Laboratory work was satisfactory. Wound clean. ASSESSMENT: Four-level spinal stenosis surgery. DISPOSITION: Dressing has been changed. We will discharge her home this morning. Instructions, precautions, education provided from the office and from the hospital. Careful with bending, stooping and lifting. Her dressing should be changed about every 24-48 hours. She may shower in 3 days. Back brace to be worn when ambulatory. She has prescriptions on her chart, and we shall see her back for followup in about 10 days.
[2016-09-07 07:57] VITALS: O2SAT 88
[2016-09-07] MEDS: POLYETHYLENE (MIRALAX) 17 GM PACK PO SCH (09:00)
[2016-09-07] MEDS: PANTOprazole SOD 40 MG TAB PO SCH (09:03)
[2016-09-07] MEDS: SERTRALINE HCL 100 MG TAB PO SCH (09:04)
[2016-09-07] MEDS: MULTIVITAMIN TAB PO SCH (09:04)
[2016-09-07] MEDS: BUDESONIDE EC 3 MG CAP PO SCH (09:04)
[2016-09-07] MEDS: FEXOFENADINE HCL 180 MG TAB PO SCH (09:08)
[2016-09-07 09:25] VITALS: BP 118/60; PULSE 60; TEMP 37.2; O2SAT 88
--- NOTE | 2016-09-07 11:19 | Progress Note ---
Subjective Date of Service: Sep 07, 2016. Subjective Pt evaluation today including: conversation w/ patient, conversation w/ family , physical exam, chart review, lab review, review of studies, review of inpatient medication list Sitting up in chair, ready to go home Review of Systems Constitutional: No chills, No fatigue, No fever, No problem reported, No sweats , No weakness, No weight loss Eyes: No diplopia, No discharge, No eye pain, No redness, No worsening of vision ENT: No dental problems, No hearing loss, No nasal symptoms, No sore throat, No tinnitus, No trouble swallowing, No unusual epistaxis Respiratory: No cough, No dyspnea at rest, No dyspnea on exertion, No hemoptysis, No shortness of breath, No sputum, No wheezing Cardiac: No PND, No chest pain, No claudication, No edema, No orthopnea, No palpitations Abdomen: No constipation, No diarrhea, No nausea, No pain, No vomiting Musculoskeletal: No calf pain, No joint pain, No muscle pain, No swelling Female : No abnormal vaginal bleeding, No dysuria, No hematuria, No incontinence, No urinary frequency, No vaginal discharge Neurologic: No balance problems, No memory loss, No numbness/tingling, No paralysis, No vertigo, No weakness Psychiatric: No anhedonism, No anxiety, No depression symptoms, No insomnia, No substance abuse Heme: No abnormal bleeding/bruising, No clotting problems, No night sweats, No swollen lymph nodes Endo: No excessive thirst, No excessive urination, No fatigue Skin: No bleeding, No color change, No itch, No new/changing skin lesions, No rash Objective Vital Signs Date Time Temp Pulse Resp B/P Pulse Ox O2 Delivery O2 Flow Rate FiO2 09/07/16 09:25 37.2 60 18 88 Room Air 09/07/16 08:00 Room Air 09/07/16 07:57 88 Room Air 09/07/16 07:28 37.2 60 18 118/60 88 Room Air 09/07/16 00:06 37.4 74 16 152/84 95 Room Air 09/07/16 00:01 Room Air 09/06/16 18:57 37.2 69 18 125/71 91 Room Air 09/06/16 15:40 91 Room Air 09/06/16 14:58 37.0 69 18 108/60 91 Room Air 09/06/16 11:56 36.8 66 21 134/73 91 Room Air Physical Exam General Appearance: WD/WN, no apparent distress Eyes: normal inspection, PERRL, EOMI, sclerae normal ENT: normal ENT inspection, hearing grossly normal, pharynx normal Neck: supple, no adenopathy, thyroid normal, no JVD, no carotid bruits, trachea midline Respiratory/Chest: chest non-tender, lungs clear, normal breath sounds, no respiratory distress, no accessory muscle use Cardiovascular: regular rate, rhythm, no edema, no gallop, no JVD, no murmur, + systolic murmur (to low-dose 5) Abdomen: normal bowel sounds, non tender, soft, no organomegaly, no pulsatile mass Extremities: normal range of motion, non-tender, normal inspection, no pedal edema, no calf tenderness, normal capillary refill, pelvis stable Neurologic/Psychiatric: signal constructor II-XII nml as tested, no motor/sensory deficits, alert, normal mood/affect, oriented x 3 Skin: normal color, warm/dry, no rash Lymphatic: no adenopathy Laboratory Results Last 24 Hours Test 09/07/16 05:39 White Blood Count 9.09 K/uL Red Blood Count 3.25 M/uL Hemoglobin 10.0 g/dL Hematocrit 30.1 % Mean Corpuscular Volume 92.6 fL Mean Corpuscular Hemoglobin 30.8 pg Mean Corpuscular Hemoglobin Concent 33.2 g/dl RDW Standard Deviation 49.7 fL RDW Coefficient of Variation 14.6 % Platelet Count 196 K/uL Mean Platelet Volume 9.7 fL Sodium Level 140 mmol/L Potassium Level 3.9 mmol/L Chloride Level 106 mmol/L Carbon Dioxide Level 27 mmol/L Anion Gap 7.0 mmol/L Blood Urea Nitrogen 14 mg/dl Creatinine 0.73 mg/dl Est Creatinine Clear Calc Drug Dose 77.4 ml/min Estimated GFR () 98.1 Estimated GFR (Non- 84.6 BUN/Creatinine Ratio 18.5 Random Glucose 101 mg/dl Calcium Level 8.0 mg/dl Assessment and Plan 70 y/o female with a history of HTN, HLD, hypothyroidism, anxiety/depression, osteoporosis, colitis, and GERD who presents s/p L3-S1 laminectomy with Dr. Camarillo on 09/05/16 Hospitalist consulted for medical management. POD #2 -Pain management, DVT prophylaxis, and PT/OT as per primary team Sore throat, improved -Continue menthol lozenges prn pain HTN--stable -Resume lisinopril with hold parameters as renal function stable. Hold if SBP< 100 -Hold Dyazide for now as pt not hypertensive -Continue Toprol XL 25 mg PO qd -Cover with hydralazine 10 mg IV q6h prn SBP >180 HLD -Continue Crestor 10 mg PO qd Hypothyroidism -Continue Synthroid 75 mcg PO qd Anxiety/depression -Continue sertraline 100 mg PO BID Osteoporosis--Pt. takes Fosamax weekly on Sundays, will not need while inpatient Colitis -Continue budesonide 3 mg 3 tabs PO qd and Bentyl prn GERD -Continue Prilosec 20 mg PO BID Code Status -Level I, FULL RESUSCITATION STATUS I told patient to follow-up with her PCP for all of her medical conditions Continued [facility] stay due to: home environment unsafe for pt Discharge planning: home
== END 2016-09-07 10:29 | disposition home health service (06) ==
LOC: ENRESERVTM → ENRESERVDT → C.ACU 06:18 → C.3E 10:21
PROVIDERS: ADMIT Orthopaedic Surgery Orthopaedic Surgery of the Spine; ATTEND Orthopaedic Surgery Orthopaedic Surgery of the Spine
DX: M48.06 Spinal stenosis, lumbar region (principal); E88.2 Lipomatosis, not elsewhere classified; J02.9 Acute pharyngitis, unspecified; K52.9 Noninfective gastroenteritis and colitis, unspecified; E03.9 Hypothyroidism, unspecified; I10 Essential (primary) hypertension; F32.9 Major depressive disorder, single episode, unspecified; M81.0 Age-related osteoporosis without current pathological fracture; K21.9 Gastro-esophageal reflux disease without esophagitis; E78.5 Hyperlipidemia, unspecified; Z79.82 Long term (current) use of aspirin; Z88.0 Allergy status to penicillin; Z90.710 Acquired absence of both cervix and uterus; Z90.49 Acquired absence of other specified parts of digestive tract; Z87.891 Personal history of nicotine dependence; Z80.3 Family history of malignant neoplasm of breast; Z83.3 Family history of diabetes mellitus; Z82.49 Family history of ischemic heart disease and other diseases of the circulatory system; Z84.1 Family history of disorders of kidney and ureter; Z83.6 Family history of other diseases of the respiratory system; Z82.3 Family history of stroke